=== PATIENT | male | born 1975 | race African-American/Black ===

== ENCOUNTER 2019-10-16 19:15 | Inpatient (IN) | payer MEDICARE, OTHER ==
[~2019-10-16] VITALS: Ht 180.3 cm; Wt 99.8 kg
[2019-10-16] MEDS: METOPROLOL TARTRATE 5MG/5ML VIAL IV SCH ×3 (19:41→20:11)
[2019-10-16 20:24] LABS: BASOPHILS % 1.1 % (0.0-2.0); EOSINOPHILS % 5.5 % (0.0-5.0); HEMATOCRIT. 29.9 % (42.0-52.0); HEMOGLOBIN. 9.7 g/dL (14.0-18.0); LYMPHOCYTES % 8.1 % (20.0-50.0); MEAN CORPUSCULAR HEMOGLOBIN 27.4 pg (28.0-32.0); MEAN CORPUSCULAR VOLUME 83.9 fL (80.0-94.0); MEAN PLATELET VOLUME 8.4 fl (7.4-10.4); MONOCYTES % 10.1 % (2.0-8.0); NEUTROPHILS % 75.2 % (40.0-76.0); PLATELET 203 x1000/uL (130-400); RED BLOOD CELL COUNT 3.56 mill/uL (4.7-6.1)
[2019-10-16 20:27] LABS: CHLORIDE 103 mEq/L (98-107)
[2019-10-16] MEDS ORDERED: DILTIAZEM HCL 5MG/ML 5ML VIAL IV ONE (20:30)
[2019-10-16] MEDS ORDERED: CEFTRIAXONE 1 G PREMIX 50 ML IV ONE (20:30)
[2019-10-16] MEDS ORDERED: AZITHROMYCIN 500 MG in DEXT 5% WATER 250 ML IV ONE (20:30)
[2019-10-16] MEDS ORDERED: ZOLPIDEM TARTRATE 5MG TABLET PO PRN (21:15)
[2019-10-16] MEDS ORDERED: LEVOFLOXACIN 500MG PREMIX 100 ML IV SCH ×2 (21:15→21:30)
[2019-10-16] MEDS ORDERED: ACETAMINOPHEN 325MG TABLET PO PRN ×2 (21:15)
[2019-10-16] MEDS ORDERED: ONDANSETRON HCL 4MG/2ML INJ IV PRN (21:15)
[2019-10-16 21:36] LABS: PROTHROMBIN TIME 11.1 sec (9.6-11.0)
[2019-10-16] MEDS: SODIUM CHLORIDE 0.9% INJ 3ML FLUSH IVF SCH (22:01)
[2019-10-16] MEDS ORDERED: DILTIAZEM HCL 125 MG in DEXT 5% WATER 100 ML IV ONE (22:30)
[2019-10-16] MEDS: DILTIAZEM HCL 125 MG in DEXT 5% WATER 100 ML IV SCH (22:32)
[2019-10-17] VITALS (73 sets, daily range): BP systolic 67–216; BP diastolic 32–152
[2019-10-17] MEDS ORDERED: DILTIAZEM HCL 125 MG in DEXT 5% WATER 100 ML IV SCH ×2
[2019-10-17] MEDS: SODIUM CHLORIDE 0.9% INJ 3ML FLUSH IVF SCH ×3 (06:00→22:00)
[2019-10-17 08:02] LABS: *AMPHETAMINES SCREEN URINE PRESUMTIVE POSITIVE (NEGATIVE); *BARBITURATES SCREEN URINE NEGATIVE (NEGATIVE); *BENZODIAZEPINES SCREEN URINE NEGATIVE (NEGATIVE); *COCAINE SCREEN URINE NEGATIVE (NEGATIVE); METHADONE URINE SCREEN NEGATIVE (NEGATIVE); OPIATES URINE SCREEN NEGATIVE (NEGATIVE)
[2019-10-17 08:03] LABS: CANNABINOID URINE SCREEN NEGATIVE (NEGATIVE); PHENCYCLIDINE URINE SCREEN PRESUMTIVE POSITIVE (NEGATIVE)
[2019-10-17] MEDS: DIPHENHYDRAMINE 50MG/ML VIAL IV PRN ×2 (08:28→12:35)
[2019-10-17] MEDS: METOPROLOL TARTRATE 5MG/5ML VIAL IV SCH (08:28)
[2019-10-17] MEDS ORDERED: CLON-457 MT (08:47)
[2019-10-17] MEDS ORDERED: HYDR-4135 MT (08:48)
[2019-10-17] MEDS ORDERED: CLONIDINE 0.1MG TABLET PO SCH (09:30)
[2019-10-17] MEDS ORDERED: HYDRALAZINE HCL 50MG TABLET PO NR (09:30)
[2019-10-17] MEDS ORDERED: HYDRALAZINE 20MG/ML VIAL IV NR (09:45)
[2019-10-17] MEDS: CLONIDINE 0.1MG TABLET PO PRN (10:05)
[2019-10-17 11:14] LABS: CLARITY URINE CLEAR (CLEAR); COLOR URINE YELLOW (YELLOW); KETONES URINE NEGATIVE (NEGATIVE); LEUKOCYTE ESTERASE URINE NEGATIVE (NEGATIVE); NITRITE URINE NEGATIVE (NEGATIVE); OCCULT BLOOD URINE NEGATIVE (NEGATIVE); PROTEIN URINE 3+ (NEGATIVE); SPECIFIC GRAVITY URINE 1.014 (1.005-1.030); UROBILINOGEN URINE 0.2 E.U./dL (0.2-1.0)
[2019-10-17] MEDS ORDERED: MORPHINE SULFATE 2 MG/ML CPJ (NOT FOR IM USE) IV PRN (11:45)
[2019-10-17] MEDS ORDERED: LIDOCAINE HCL 1% 20ML VIAL (Pyxis) INJ INFIL NR (11:45)
[2019-10-17] MEDS: DILTIAZEM HCL 60MG TABLET PO SCH ×2 (12:00→18:00)
[2019-10-17 12:04] LABS: HEMATOCRIT. 31.3 % (42.0-52.0); LYMPHOCYTES % 12.8 % (20.0-50.0); MEAN CORPUSCULAR HEMOGLOBIN 26.9 pg (28.0-32.0); MEAN CORPUSCULAR VOLUME 83.8 fL (80.0-94.0); MEAN PLATELET VOLUME 8.7 fl (7.4-10.4); MONOCYTES % 10.9 % (2.0-8.0); NEUTROPHILS % 71.3 % (40.0-76.0); PLATELET 231 x1000/uL (130-400); RED BLOOD CELL COUNT 3.73 mill/uL (4.7-6.1); RED CELL DISTRIBUTION WIDTH 20.6 % (11.6-14.6)
[2019-10-17 12:22] LABS: PHOSPHORUS 6.5 mg/dL (2.5-4.9)
[2019-10-17 12:28] LABS: CREATINE KINASE MB FRACTION 6.2 ng/mL (0.5-3.6)
[2019-10-17] MEDS ORDERED: LORAZEPAM 2MG/ML CPJ IV SCH (12:30)
[2019-10-17] MEDS: MORPHINE SULFATE 2 MG/ML CPJ (NOT FOR IM USE) IV PRN ×2 (12:37→18:23)
[2019-10-17] MEDS: DILTIAZEM HCL 125 MG in DEXT 5% WATER 100 ML IV SCH (13:49)
[2019-10-17] MEDS ORDERED: LORAZEPAM 2MG/ML CPJ IV PRN (16:30)
[2019-10-17] MEDS: HYDRALAZINE HCL 50MG TABLET PO SCH (20:52)
[2019-10-17 21:01] LABS: CREATINE KINASE MB FRACTION 4.7 ng/mL (0.5-3.6)
[2019-10-18] VITALS (105 sets, daily range): BP systolic 103–244; BP diastolic 33–205
[2019-10-18] MEDS: DILTIAZEM HCL 60MG TABLET PO SCH ×2 (00:47→06:52)
[2019-10-18] MEDS: CLONIDINE 0.1MG TABLET PO PRN ×5 (00:53→23:49)
[2019-10-18] MEDS: HYDRALAZINE 20MG/ML VIAL IV PRN ×4 (02:44→15:52)
[2019-10-18 05:28] LABS: EOSINOPHILS % 4.1 % (0.0-5.0); HEMATOCRIT. 30.3 % (42.0-52.0); LYMPHOCYTES % 12.9 % (20.0-50.0); MEAN CORPUSCULAR HEMOGLOBIN 27.7 pg (28.0-32.0); MEAN CORPUSCULAR VOLUME 83.8 fL (80.0-94.0); MONOCYTES % 14.3 % (2.0-8.0); NEUTROPHILS % 67.7 % (40.0-76.0); PLATELET 222 x1000/uL (130-400); RED BLOOD CELL COUNT 3.61 mill/uL (4.7-6.1); RED CELL DISTRIBUTION WIDTH 20.4 % (11.6-14.6)
[2019-10-18] MEDS: SODIUM CHLORIDE 0.9% INJ 3ML FLUSH IVF SCH ×3 (06:00→21:48)
[2019-10-18] MEDS ORDERED: MAGNESIUM 4 G PREMIX 100 ML IV NR (07:00)
[2019-10-18] MEDS: DIPHENHYDRAMINE 50MG/ML VIAL IV PRN ×2 (07:59→14:47)
[2019-10-18] MEDS: HYDRALAZINE HCL 50MG TABLET PO SCH ×3 (07:59→21:46)
[2019-10-18] MEDS: DILTIAZEM HCL 90MG TABLET PO SCH ×3 (12:57→23:48)
[2019-10-18] MEDS: LORAZEPAM 2MG/ML CPJ IV PRN ×2 (12:58→17:49)
[2019-10-18] MEDS: HYDROCODONE/ACETAMINOPHEN 10/325MG TABLET PO PRN (12:59)
[2019-10-18] MEDS: DILTIAZEM HCL 5MG/ML 5ML VIAL IV PRN ×3 (14:10→17:48)
[2019-10-18] MEDS ORDERED: CLONIDINE 0.2MG TABLET PO NR (15:45)
[2019-10-18] MEDS: SEVELAMER CARBONATE 800 MG TABLET PO SCH (15:53)
[2019-10-18] MEDS: DILTIAZEM HCL 125 MG in DEXT 5% WATER 100 ML IV SCH (15:53)
[2019-10-18] MEDS ORDERED: SEVE800T8 MT (18:54)
[2019-10-18] MEDS ORDERED: LEVOFLOXACIN 250MG PREMIX 50 ML IV SCH (21:00)
[2019-10-18] MEDS: CLONIDINE 0.2MG TABLET PO SCH (21:46)
[2019-10-19] VITALS (96 sets, daily range): BP systolic 40–215; BP diastolic 20–182
[2019-10-19] MEDS: HYDRALAZINE 20MG/ML VIAL IV PRN (04:00)
[2019-10-19 05:51] LABS: BASOPHILS % 1.2 % (0.0-2.0); EOSINOPHILS % 4.5 % (0.0-5.0); HEMATOCRIT. 28.9 % (42.0-52.0); HEMOGLOBIN. 9.6 g/dL (14.0-18.0); LYMPHOCYTES % 7.7 % (20.0-50.0); MEAN PLATELET VOLUME 8.8 fl (7.4-10.4); MONOCYTES % 13.8 % (2.0-8.0); NEUTROPHILS % 72.8 % (40.0-76.0); PLATELET 213 x1000/uL (130-400); RED BLOOD CELL COUNT 3.44 mill/uL (4.7-6.1)
[2019-10-19] MEDS: SODIUM CHLORIDE 0.9% INJ 3ML FLUSH IVF SCH ×3 (06:00→21:07)
[2019-10-19 06:08] LABS: PHOSPHORUS 7.2 mg/dL (2.5-4.9)
[2019-10-19] MEDS: CLONIDINE 0.2MG TABLET PO SCH (06:15)
[2019-10-19] MEDS: DILTIAZEM HCL 90MG TABLET PO SCH (06:16)
[2019-10-19] MEDS: HYDRALAZINE HCL 50MG TABLET PO SCH ×3 (06:16→21:26)
[2019-10-19] MEDS: SEVELAMER CARBONATE 800 MG TABLET PO SCH ×3 (06:17→16:30)
[2019-10-19] MEDS: AZITHROMYCIN 500 MG TABLET PO SCH (09:45)
[2019-10-19] MEDS: DILTIAZEM HCL 125 MG in DEXT 5% WATER 100 ML IV SCH ×2 (10:40→21:28)
[2019-10-19] MEDS ORDERED: CEFTRIAXONE 1 G PREMIX 50 ML IV SCH (11:00)
[2019-10-19] MEDS: CALCIUM ACETATE 667MG CAPSULE PO SCH ×2 (12:00→17:52)
[2019-10-19] MEDS: DILTIAZEM HCL 60MG TABLET PO SCH ×3 (12:00→23:03)
[2019-10-19] MEDS: HYDROCODONE/ACETAMINOPHEN 10/325MG TABLET PO PRN ×2 (12:03→21:27)
[2019-10-19] MEDS: CLONIDINE 0.3MG TABLET PO SCH ×2 (14:00→21:26)
[2019-10-19] MEDS ORDERED: LIDOCAINE HCL/PF 1% 10 MG/ML 5ML VIAL INL NR (20:00)
[2019-10-19] MEDS: LORAZEPAM 2MG/ML CPJ IV PRN (23:06)
[2019-10-19] MEDS: DIPHENHYDRAMINE 50MG/ML VIAL IV PRN (23:06)
[2019-10-20] VITALS (58 sets, daily range): BP systolic 94–209; BP diastolic 39–146
[2019-10-20 00:13] LABS: BG BASE EXCESS -0.2 mmol/L (-2.0-2.0); BG CARBOXYHEMOGLOBIN 0.3 % (0.5-1.5); BG DEOXYHEMOGLOBIN 24.8 % (0.0-5.0); BG FRACTION INSPIRED OXYGEN 44; BG HCO3 ACT 25.3 mmol/L (22.0-26.0); BG METHEMOGLOBIN 0.3 % (0.0-1.5); BG OXYGEN SATURATION 75.1 % (92.0-98.5); BG OXYHEMOGLOBIN 74.6 % (94.0-97.0); BG PCO2 44.8 mmHg (35.0-45.0); BG PH 7.369 (7.350-7.450); BG PO2 44.7 mmHg (75.0-100.0); BG SAMPLE SITE RIGHT RADIAL; BG TOTAL HEMOGLOBIN 9.4 g/dL (12.0-18.0); BG VENT MODE NASAL CANNULA
[2019-10-20] MEDS: SODIUM CHLORIDE 0.9% INJ 3ML FLUSH IVF SCH ×3 (05:23→21:05)
[2019-10-20] MEDS: HYDRALAZINE HCL 50MG TABLET PO SCH ×2 (05:45→14:02)
[2019-10-20] MEDS: DILTIAZEM HCL 60MG TABLET PO SCH ×3 (05:45→17:49)
[2019-10-20] MEDS: CLONIDINE 0.3MG TABLET PO SCH ×3 (05:45→21:06)
[2019-10-20] MEDS: DILTIAZEM HCL 125 MG in DEXT 5% WATER 100 ML IV SCH ×2 (06:22→06:26)
[2019-10-20] MEDS: CALCIUM ACETATE 667MG CAPSULE PO SCH ×3 (08:20→17:49)
[2019-10-20] MEDS: AZITHROMYCIN 500 MG TABLET PO SCH (08:20)
[2019-10-20] MEDS: SEVELAMER CARBONATE 800 MG TABLET PO SCH ×3 (08:21→17:50)
[2019-10-20 08:49] LABS: HEMATOCRIT. 28.4 % (42.0-52.0); HEMOGLOBIN. 9.2 g/dL (14.0-18.0); MEAN CORPUSCULAR HEMOGLOBIN 27.4 pg (28.0-32.0); MEAN CORPUSCULAR VOLUME 84.5 fL (80.0-94.0); MEAN PLATELET VOLUME 8.7 fl (7.4-10.4); PLATELET 222 x1000/uL (130-400); RED BLOOD CELL COUNT 3.37 mill/uL (4.7-6.1); RED CELL DISTRIBUTION WIDTH 20.1 % (11.6-14.6)
[2019-10-20 10:07] LABS: PLATELET ESTIMATE NORMAL
[2019-10-20] MEDS: HYDROCODONE/ACETAMINOPHEN 10/325MG TABLET PO PRN ×2 (11:08→17:51)
[2019-10-20] MEDS: LORAZEPAM 2MG/ML CPJ IV PRN (14:05)
[2019-10-20] MEDS: MORPHINE SULFATE 2 MG/ML CPJ (NOT FOR IM USE) IV PRN ×2 (14:05→22:27)
[2019-10-20] MEDS: CEFTRIAXONE 1 G PREMIX 50 ML IV SCH (14:05)
[2019-10-20] MEDS: MINOXIDIL 2.5MG TABLET PO SCH (20:46)
[2019-10-20] MEDS: HYDRALAZINE HCL 100MG TABLET PO SCH (21:06)
[2019-10-21] VITALS (8 sets, daily range): BP systolic 115–191; BP diastolic 67–99
[2019-10-21] MEDS: DILTIAZEM HCL 60MG TABLET PO SCH ×3 (00:14→11:52)
[2019-10-21] MEDS: HYDROCODONE/ACETAMINOPHEN 10/325MG TABLET PO PRN ×2 (00:17→06:32)
[2019-10-21] MEDS: MORPHINE SULFATE 2 MG/ML CPJ (NOT FOR IM USE) IV PRN (03:42)
[2019-10-21] MEDS: SEVELAMER CARBONATE 800 MG TABLET PO SCH ×2 (06:31→11:51)
[2019-10-21] MEDS: CLONIDINE 0.3MG TABLET PO SCH ×2 (06:31→08:29)
[2019-10-21] MEDS: SODIUM CHLORIDE 0.9% INJ 3ML FLUSH IVF SCH ×2 (06:32→14:53)
[2019-10-21] MEDS: HYDRALAZINE HCL 100MG TABLET PO SCH ×2 (06:32→14:00)
[2019-10-21 07:57] LABS: HEMATOCRIT. 28.7 % (42.0-52.0); HEMOGLOBIN. 9.2 g/dL (14.0-18.0); MEAN CORPUSCULAR HEMOGLOBIN 27.1 pg (28.0-32.0); MEAN CORPUSCULAR VOLUME 84.7 fL (80.0-94.0); MEAN PLATELET VOLUME 8.5 fl (7.4-10.4); PLATELET 234 x1000/uL (130-400); RED BLOOD CELL COUNT 3.39 mill/uL (4.7-6.1); RED CELL DISTRIBUTION WIDTH 20.4 % (11.6-14.6)
[2019-10-21] MEDS: CALCIUM ACETATE 667MG CAPSULE PO SCH ×2 (08:28→11:52)
[2019-10-21] MEDS: AZITHROMYCIN 500 MG TABLET PO SCH (08:29)
[2019-10-21] MEDS: MINOXIDIL 2.5MG TABLET PO SCH (08:30)
[2019-10-21 08:42] LABS: PLATELET ESTIMATE NORMAL
[2019-10-21] MEDS ORDERED: MINO2.5T19 PO (12:06)
[2019-10-21] MEDS ORDERED: HYDR100T26 PO (12:06)
[2019-10-21] MEDS ORDERED: CALC667C PO (12:06)
[2019-10-21] MEDS ORDERED: AZIT500T8 PO (12:06)
[2019-10-21] MEDS ORDERED: HYDR-4009 PO (12:06)
[2019-10-21] MEDS ORDERED: DILT60TA35 PO (12:06)
[2019-10-21] MEDS: CEFTRIAXONE 1 G PREMIX 50 ML IV SCH (13:00)
[2019-10-21] MEDS ORDERED: MINOXIDIL 2.5MG TABLET PO SCH (21:00)
[2019-10-22] MEDS ORDERED: AZITHROMYCIN 500 MG TABLET PO SCH (09:00)
== END 2019-10-21 17:20 | disposition home or self-care (01) | DRG 917 ==
LOC: ER 19:15 → MICUSO 23:40 → CVICU 10-19 21:05 → 3WST 10-20 21:56
PROVIDERS: ADMIT Internal Medicine; ATTEND Internal Medicine
PROC: 5A1D70Z Performance of Urinary Filtration, Intermittent, Less than 6 Hours Per Day (ICD-10-PCS; principal; 2019-10-17)
PROC: 5A1D70Z Performance of Urinary Filtration, Intermittent, Less than 6 Hours Per Day (ICD-10-PCS; 2019-10-19)
PROC: 5A09357 Assistance with Respiratory Ventilation, Less than 24 Consecutive Hours, Continuous Positive Airway Pressure (ICD-10-PCS; 2019-10-19)
PROC: 5A09357 Assistance with Respiratory Ventilation, Less than 24 Consecutive Hours, Continuous Positive Airway Pressure (ICD-10-PCS; 2019-10-20)
DX: T43.621A Poisoning by amphetamines, accidental (unintentional), initial encounter (principal); J96.00 Acute respiratory failure, unspecified whether with hypoxia or hypercapnia; N18.6 End stage renal disease; I13.2 Hypertensive heart and chronic kidney disease with heart failure and with stage 5 chronic kidney disease, or end stage renal disease; I47.1 Supraventricular tachycardia; J68.0 Bronchitis and pneumonitis due to chemicals, gases, fumes and vapors; I43 Cardiomyopathy in diseases classified elsewhere; I16.0 Hypertensive urgency; D63.8 Anemia in other chronic diseases classified elsewhere; E83.42 Hypomagnesemia; Z20.828 Contact with and (suspected) exposure to other viral communicable diseases; M54.5 Low back pain; F15.10 Other stimulant abuse, uncomplicated; F16.10 Hallucinogen abuse, uncomplicated; F17.210 Nicotine dependence, cigarettes, uncomplicated; I50.9 Heart failure, unspecified; Z91.19 Patient's noncompliance with other medical treatment and regimen; Z99.2 Dependence on renal dialysis; Z88.8 Allergy status to other drugs, medicaments and biological substances; Y92.89 Other specified places as the place of occurrence of the external cause
CPT/HCPCS: 36415; 36600; 71045; 73521; 80048; 80053; 80061; 80305; 81003; 82375; 82550; 82553; 82805; 82962; 83605; 83735; 84100; 84145; 84443; 84484; 85025; 93005; 93306; 93970; 93971; 96365; 99291; J0360; J0456; J0696; J1200; J1956; J2060; J2270; J3475; J3490; J7060; U0003-CS